=== PATIENT | male | born 1940 | race Caucasian/White ===

== ENCOUNTER → 2017-10-27 | Day surgery (SDC) | payer OTHER ==
[~2017-10-27] VITALS: Ht 172.7 cm; Wt 118.8 kg
[~2017-10-27] MED LIST: ASPIRIN81 M4 PO; CELEBREX200 M1 PO; FENOFIBRATE145 M1 PO; FISH OIL 1,0001 EAC1 PO; KEFLEX500 M1 PO; LASIX20 M1 PO; LIDOCAINE1 EACH TOP; LOSARTAN POTASS25 M1 PO; SENNA8.6 M3 PO; VITAMIN B-121000 MC3 PO; VITAMIN D1000 UNIT PO
--- NOTE | 2017-10-27 09:08 | Operative Report ---
Operative/Inv Procedure Report Surgery Date: 10/27/17 Name of Procedure: Endoscopic sinus surgery with 1. total ethmoidectomy, left 2. Middle meatal antrostomy with polypoid tissue removal, balloon sinus plasty, left 3. Middle meatal antrotomy, right 4. Frontal sinusotomy with Nasofrontal duct exploration with Balloon dilation, left 4. Inferior turbinate outfracture, bilateral 5. Middle turbinate reduction, bilateral Pre-Operative Diagnosis: Chronic sinusitis maxillary, ethmoid, frontal Post-Operative Diagnosis: Same Estimated Blood Loss: less than 50ml Surgeon/Getter Welder: Belinda Alvarado MD Anesthesia: general endotracheal tube Specimens: Sinuses, turbinates left and right Microbiology: Maxillary sinus, left Complications: Non- Condition: Stable on leaving the OR Operative Indication: Chronic sinusitis x several months Patient treated with multiple antibiotics, antihistamines, decongestants, steroid and antihistamine nasal sprays with limited improvement, with improvement but then recurrence Frequent facial pressures and headaches mostly on the left Operative/Procedure Note Note: The patient was brought to the operating room. Placed on the operating room table in supine position. At first timeout was performed identifying the patient, ID numbers and procedure to be performed. Next general oral endotracheal anesthesia was induced. Endotracheal tube was secured with tape over the [left] corner of the lip. Operating room table was rotated 90 to the left and patient was positioned for sinus surgery with head slightly hyperextended and rotated to the right. At first vasoconstriction was carried by application of Afrin spray on cottonoid pledgets. Next nasal septum was injected with 1% lidocaine with 1: 100,000 epinephrine approximately 9 mL was injected on the last and another 6 mL on the right. This followed by placement of cotton pledgets saturated with cocaine solution and Afrin spray. Patient's face was then prepped and draped in routine manner and surgery was performed. Next endoscopic sinus surgery was carried out, first on the left and then on the right. The surgery was carried with direct visualization with 0 and 30 scopes. At first on the left, middle turbinate was reduced along its inferior border with Deliouenwald forceps. Middle meatus was entered and partial ethmoidectomy was carried. The ethmoid air cells contained radial polypoid mucosa which was removed with the straight and up turned to Nadine-Mirian forceps. Ethmoid air cells were obstructed with polypoid mucosa. There was significant bony hyperostosis. Once ethmoidectomy was completed. . Acclarentl system was used. The wire guide was threaded into the frontal sinus. Position was confirmed by transillumination of the frontal sinus. Balloon was threaded and in and inflated to pressure 6. Pressure was released, balloon was withdrawn. There was no evidence of purulent drainage within the frontal sinus. Next, maxillary sinus surgery was carried. Maxillary sinus ostium was explored. Uncinate process was partially removed with Setliff forceps. Curved ball seeker was used to probe for the natural maxillary sinus ostium. The ostium was then dilated with Acclerent balloon sinus plasty. Sinus was copiously irrigated and contained purulent drainage was also sent for cultures. Polypoid tissue was removed. Surgery was completed on the last. Next surgery was carried on the right. Ethmoid sinuses were explored and there was no evidence of significant sinus disease.. Ethmoidectomy was not performed. Middle meatal antrotomy was carried. Polypoid tissue was removed. The mucosa was hyperplastic and bone hyperostotic. Partial uncinectomy was carried with Setliff forceps. Curved ball seeker was used to search for the maxillary ostium. Ostium was dilated with a curved suction. Middle turbinate was reduced along its inferior border with Gruenwald forceps. Sinus surgery was completed. Next inferior turbinates were then in and outfractured. Surgery was completed. Nasal packing was applied next. Gelfilm rolled up into a roll was placed into the middle meatus 2 pieces on each side, secured with 2-0 silk which was then taped to the cheeks with Steri-Strips. Nasal fossa was packed with Telfa saturated with Bactroban ointment. Telfa was stitched anteriorly with 2-0 silk to prevent posterior displacement. Surgery was completed. The patient was reawakened, extubated and taken to the recovery room in good condition. There were no complications. Estimated blood was was 30 mL. Findings: 1. Ethmoid sinuses, left- polypoid tissue 2. Ethmoid sinuses, right clear 3. Maxillary sinuse, left- polypoid tissue, purulent drainage 4. Maxillary sinus, right polypoid tissue, no purulent drainage 5. Middle turbinates- hypertrophy with obstruction of the middle meatus bilateral 6. Inferior Turbinates- hypertrophy with obstruction of the inferior meatus 7. Frontal sinus, left nasofrontal duct obstructed by polypoid tissue Discharge Disposition: PACU 4. Middle turbinates- paradoxical curve with obstruction of the middle meatus bilateral 5. Inferior Turbinates- hypertrophy with obstruction of the inferior meatus Discharge Disposition: Same Day Admissions
== END ==
LOC: STS 01:55
DX: J32.0 Chronic maxillary sinusitis (principal); J32.1 Chronic frontal sinusitis; J32.2 Chronic ethmoidal sinusitis; G50.1 Atypical facial pain; Z87.891 Personal history of nicotine dependence; J45.909 Unspecified asthma, uncomplicated; G47.33 Obstructive sleep apnea (adult) (pediatric); I10 Essential (primary) hypertension
CPT/HCPCS: 87070; 87075; 87184; 87071; 87147; J0131; J0690; J1100; J2250; J3490

== ENCOUNTER 2017-11-13 18:47 | Observation (INO) | payer OTHER ==
--- NOTE | 2017-11-13 19:14 | ED GENERAL ADULT ---
History of Present Illness General Chief Complaint: Lower Extremity Injury Stated Complaint: BACK PAIN Source: patient, family, old records Exam Limitations: no limitations Vital Signs & Intake/Output Vital Signs & Intake/Output Vital Signs Date Time Temp Pulse Resp B/P B/P Pulse O2 O2 Flow FiO2 Mean Ox Delivery Rate 11/14 1046 97.5 66 18 138/70 97 Room Air 11/14 0845 98.6 64 18 142/66 96 Room Air 11/14 0634 99.0 67 20 145/68 95 Room Air 11/14 0013 Room Air 11/14 0004 99.2 90 16 136/82 95 11/13 2138 99.9 88 18 166/79 96 Room Air 11/13 1915 100.4 99 20 145/85 94 Room Air ED Intake and Output 11/14 0000 11/13 1200 Intake Total 2000 Output Total Balance 2000 Intake, IV 2000 Allergies Coded Allergies: celery (Severe, GI UPSET 11/15/15) celecoxib (GI UPSET 10/25/17) lisinopril (cough 10/25/17) Reconcile Medications Aspirin (Aspirin*) 81 MG TAB.CHEW 1 TAB PO DAILY HEART HEALTH (Reported) Celecoxib (Celebrex) 200 MG CAPSULE 1 CAP PO BID PRN PAIN (Reported) Cholecalciferol (Vitamin D3) (Vitamin D) 1,000 UNIT TABLET 1 TAB PO DAILY SUPPLEMENT (Reported) Furosemide (Lasix) 20 MG TABLET 1 TAB PO EOD EDEMA (Reported) Lidocaine 5 % ADH..PATCH 1-3 PAT TOP PRN PAIN (Reported) Losartan Potassium 25 MG TABLET 1 TAB PO DAILY HEART (Reported) [place]-3 Fatty Acids/Fish Oil (Fish Oil 1,000 MG Softgel) 1 EACH CAPSULE 1 CAP PO BID SUPPLEMENT (Reported) Sennosides (Senna) 8.6 MG TABLET 1 TAB PO DAILY CONSTIPATION (Reported) Triage Note: PER FAMILY CO BACK PAIN WITH HX OF SAME THIS AM UNABLE TO AMBULATE, PER FAMILY NVD LAST FEW DAYS NONE TODAY, RECENT SINUS SURGERY AT [facility], ? DEHYDRATED Triage Nurses Notes Reviewed? yes HPI: Patient has known pinched nerve in his back. Patient was due to start physical therapy today. On Monday patient started to have diarrhea as well as nausea vomiting. Patient states he was not nauseous until he ate or drank anything but as soon as he did became nauseous and vomited. Patient has been anorexic since then. Patient has not vomited at all today but all he had was a piece of toast this morning for breakfast. Patient was too weak to get up to go to physical therapy today. When his got home from work he was on the same position that he was in when she left. She brought him in for evaluation. The pain in his back is radiating down his leg. The pain is burning and aching in nature. There is no numbness or tingling. There is no incontinence of bowel or bladder. The pain is 10 out of 10. Patient has been taking pain medication at home but he states that it does not help his pain and it makes him nauseous. (Steve VASQUES,Clem Cole) Past History Travel History Traveled to [place] past 21 day No Medical History Any Pertinent Medical History? 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 No (Steve VASQUES,Clem Cole) Review of Systems Review of Systems Constitutional: Reports: no symptoms. EENTM: Reports: no symptoms. Respiratory: Reports: no symptoms. Cardiovascular: Reports: no symptoms. GI: Reports: see HPI, diarrhea, nausea, vomiting. Genitourinary: Reports: no symptoms. Musculoskeletal: Reports: see HPI, back pain. Skin: Reports: no symptoms. Neurological/Psychological: Reports: see HPI, headache. Hematologic/Endocrine: Reports: no symptoms. Immunologic/Allergic: Reports: no symptoms. All Other Systems: Reviewed and Negative (Steve VASQUES,Clem Cole) Physical Exam Physical Exam General Appearance: well developed/nourished, alert, awake, anxious, moderate distress Head: atraumatic, normal appearance Eyes: Bilateral: PERRL, EOMI. Ears, Nose, Throat: normal pharynx, DRY MUCOSA Neck: normal inspection, supple, full range of motion Respiratory: normal breath sounds, chest non-tender, no respiratory distress, lungs clear Cardiovascular: regular rate/rhythm, normal peripheral pulses Gastrointestinal: normal bowel sounds, soft, no organomegaly, tenderness (RUQ), NO WINSTON'S, NO REBOUND,NO GUARDING Back: decreased range of motion, muscle spasm, no vertebral tenderness Extremities: normal inspection, normal capillary refill, pedal edema (TRACE) Neurologic/Psych: no motor/sensory deficits, awake, alert, oriented x 3, normal mood/affect Skin: intact, normal color, warm/dry Lymphatic: no anterior cervical brett Core Measures ACS in differential dx? No CVA/TIA Diagnosis: No Sepsis Present: No Sepsis Focused Exam Completed? No (Steve VASQUES,Clem Cole) Progress Differential Diagnoses I considered the following diagnoses in my evaluation of the patient: [ Dehydration, electrolyte abnormality, AMI, viral illness, cholecystitis, frontal abscess] Plan of Care: Orders Procedure Date/time Status Regular Diet 11/14 B Active Discharge Patient 11/14 1343 Active C.DIFFICILE 11/[address] in observation 11/13 232 Active ED Holding Orders 11/13 232 Active Patient Data 11/13 232 Active Vital Signs 11/14 2323 Active Code Status 11/13 232 Active PT Evaluate & Treat 11/13 2157 Active CASE MANAGEMENT CONSULT 11/13 2157 Active Intake & Output 11/13 193 Active URINALYSIS 11/14 1911 Active TROPONIN LEVEL 11/14 1911 Complete MAGNESIUM 11/14 1911 Complete COMPREHENSIVE METABOLIC PANEL 11/14 1911 Complete CBC WITHOUT DIFFERENTIAL 11/14 1911 Complete EKG 11/14 1911 Active Current Medications Sig/Ryley Start time Last Medication Dose Stop Time Status Admin Ciprofloxacin 500 MG ONCE ONE 11/14 1400 AC (Cipro) 11/14 1401 Loperamide HCl 4 MG ONCE ONE 11/14 1400 UNVr (Imodium) 11/14 1401 Aspirin 81 MG DAILY 11/14 899 AC 11/14 (Aspirin) 09 Cholecalciferol 1,000 IU DAILY 11/14 899 AC 11/14 (Vitamin D) 09 Furosemide 20 MG Q48 11/14 899 AC 11/14 (Lasix) 0936 Losartan Potassium 25 MG DAILY 11/14 899 AC 11/14 (Cozaar) 0936 Celecoxib 200 MG BID PRN 11/14 0045 AC (Celebrex 200MG Cap) Laboratory Tests 11/13/170: Anion Gap 12, Estimated GFR > 60, BUN/Creatinine Ratio 17.3, Glucose 108 H, Calcium 9.1, Magnesium 1.5 L, Total Bilirubin 0.9, AST 63 H, ALT 75 H, Alkaline Phosphatase 68, Troponin I < 0.01, Total Protein 7.3, Albumin 3.9, Globulin 3.4, Albumin/Globulin Ratio 1.1, CBC w Diff NO MAN DIFF REQ, RBC 5.74, MCV 83.5, MCH 28.0, MCHC 33.6, RDW 14.9 H, MPV 7.8, Gran % 85.4 H, Lymphocytes % 4.1 L, Monocytes % 10.5 H, Eosinophils % 0, Basophils % 0, Absolute Granulocytes 7.9 H, Absolute Lymphocytes 0.4 L, Absolute Monocytes 1.0 H, Absolute Eosinophils 0, Absolute Basophils 0 Microbiology 07 0650 STOOL: Clostridium difficile Toxin A & B - COMP Diagnostic Imaging: Viewed by Me: CT Scan. Discussed w/RAD: CT Scan. Radiology Impression: PATIENT: JOSÉ MIGUEL ALSTON PRESENT AGE: 77 PATIENT ACCOUNT NO: [id number] : 40 LOCATION: [facility] ORDERING PHYSICIAN: Clem Wilson MD SERVICE DATE: 11/13/17 EXAM TYPE: CAT - CT HEAD WO IV CONTRAST EXAMINATION: CT HEAD WITHOUT CONTRAST CLINICAL INFORMATION: Headaches since sinus surgery. Question frontal abscess COMPARISON: 09/08/2017 TECHNIQUE: Contiguous axial imaging was performed from the skull base to vertex without intravenous administration of contrast. DLP: 630.0 mGy-cm FINDINGS: There is no evidence of acute intracranial hemorrhage or territorial infarction. No abnormal mass effect or midline shift is seen. Johnston to white matter differentiation is well preserved. No extra-axial fluid collections are identified. 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 The ventricles are otherwise normal in size. Foci of hypoattenuation in the subcortical and periventricular white matter are most commonly attributable to chronic microangiopathic changes. Calcific atherosclerosis is present within the cavernous and supraclinoid segments of the internal carotid arteries. The osseous structures and soft tissues are normal. As on the prior study, there is complete opacification of the left maxillary sinus as well as opacification of the majority of the left ethmoid air cells and the left frontoethmoidal recess. 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 Specifically, no abscesses or acute osseous erosion are identified. The paranasal sinuses are clear. Mastoid cells are clear. IMPRESSION: 1. Complete opacification of the left mastoid sinus and opacification of the anterior ethmoid sinuses and frontoethmoidal recess, not significantly unchanged from prior. No abscess is identified. 2. No acute intracranial findings. 3. 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 Recommend follow- up nonemergent brain MRI including FIESTA sequences to exclude an arachnoid cyst. DICTATED BY: Jimmie Hanley MD DATE/TIME DICTATED:11/13/172129 POLISHER BRASS:DARRICK DATE/TIME TRANSCRIBED:11/13/172129 CONFIDENTIAL, DO NOT COPY WITHOUT APPROPRIATE AUTHORIZATION. <Electronically signed in Other Vendor System> SIGNED BY: Jimmie Hanley MD 11/13/172145, PATIENT: JOSÉ MIGUEL ALSTON PRESENT AGE: 77 PATIENT ACCOUNT NO: [id number] : 40 LOCATION: [facility] ORDERING PHYSICIAN: Clem Wilson MD SERVICE DATE: 11/13/17 EXAM TYPE: CAT - CT ABD & PELVIS W IV CONTRAST EXAMINATION: CT ABDOMEN AND PELVIS WITH CONTRAST CLINICAL INFORMATION: Right upper quadrant pain COMPARISON: 08/24/2017 CT scan of the chest and 12/01/[address] scan. TECHNIQUE: Multidetector volumetric imaging was performed from the superior aspect of the liver through the pubic symphysis following administration of 95 ml of Optiray 320 Sagittal and coronal reformatted images were obtained on the technologist workstation. DLP: 1353 mGy-cm FINDINGS: LUNG BASES: Linear scarring or atelectasis again seen at both lung bases similar to the most recent 08/24/2017 study. LIVER, GALLBLADDER, AND BILIARY TREE: Mild diffuse fatty infiltration of the liver but no focal hepatic lesion nor biliary ductal dilatation. The gallbladder is unremarkable with no evidence of radiopaque gallstones, gallbladder wall thickening, or obvious pericholecystic inflammatory changes. PANCREAS: Unremarkable. SPLEEN: Unremarkable. ADRENAL GLANDS: Unremarkable. KIDNEYS AND URETERS: The kidneys are normal in size, shape , and attenuation. No hydronephrosis, hydroureter, or calculi seen. No perinephric stranding. BLADDER: Unremarkable. GASTROINTESTINAL TRACT: Scattered colonic diverticulosis more so in the sigmoid colon. No evidence for obstruction. Normal-appearing appendix in the right lower quadrant. Visualized small bowel is unremarkable. Small hiatal hernia suggested. ABDOMINAL WALL: No significant hernia is appreciated. LYMPHOVASCULAR STRUCTURES: Vascular calcification within the aorta iliac system. No bulky adenopathy PELVIC VISCERA: Prostatic calcification OSSEOUS STRUCTURES: Degenerative changes in the spine. Right hip prosthesis IMPRESSION: I do not appreciate any acute intra-abdominal process. There is diffuse fatty infiltration of the liver. Gallbladder is unremarkable with no pericholecystic inflammatory changes. Bibasilar airspace disease is similar in appearance to the 08/24/2017 CT scan as well as the older 12/01/[address] scan. DICTATED BY: Goyo Neal MD DATE/TIME DICTATED: 11/13/172127 POLISHER BRASS:DARRICK DATE/TIME TRANSCRIBED:11/13/172127 CONFIDENTIAL, DO NOT COPY WITHOUT APPROPRIATE AUTHORIZATION. <Electronically signed in Other Vendor System> SIGNED BY: Goyo Neal MD 11/13/172135 Initial ED EKG: SR, FIRST DEGREE HB, IVCD, NO CHANGE FROM PRIOR Prior EKG: unchanged Hand-Off Endorsed To: Say Kitchen MD Endorsed Time: 0700 Pending: consult (PT, CASE MANAGEMENT) Comments: Patient still has back pain to the point that he cannot get up to ambulate. At this point patient is unsafe to be discharged. Patient will remain in the emergency department tonight for a physical therapy consultation in the morning. (Clem Wilson MD) Comments: Feels better, up and ambulating (Say Kitchen MD) Departure Departure Condition: Stable Clinical Impression Primary Impression: Back pain Referrals: Yovany Olson MD (PCP/Family) Departure Forms: Customer Survey General Discharge Information (Clem Wilson MD) Departure Time of Disposition: 1343 Disposition: HOME OR SELF CARE Prescriptions: Current Visit Scripts Ciprofloxacin HCl (Cipro) 1 TAB PO BID #14 TAB Loperamide HCl (Imodium A-D) 0 PO SEE ADMIN CRITERIA PRN diarrhea #24 TAB 1 tab after each loose stool up to 7 per day (Say Kitchen MD) Critical Care Note Critical Care Note Critical Care Time: non-applicable (Steve VASQUES,Clem Cole) ED Attending Observation Initial Observation Note: I have seen and personally examined JOSÉ MIGUEL ALSTON on 11/13/17 at 2325. I agree with the current emergency department documentation. The disposition (admission or discharge) is uncertain at this time, he needs a period of observation for the following reason(s): [Patient was unable to get to physical therapy today secondary to severe back pain as well as weakness. Patient will remain in the emergency department tonight for IV hydration given his recent bout of diarrhea as well as pain control. Patient will have physical therapy consultation in the morning. If his pain can be controlled and physical therapy and deemed that he is safe to go home at that point he will be able to be discharged however if one of those 2 things are not happen then he might need admission for IV pain control or short-term rehabilitation for physical therapy. ] The ED Nurse caring for this patient has been personally informed as to what the patient is being observed for. (Steve VASQUES,Clem Cole) Observation Discharge: I have reevaluated JOSÉ MIGUEL ALSTON on 11/14/17 at 1343. The patient is: (x): Stable for discharge (): To be admitted to Nursing Floor (): To be placed in Observation on Nursing Floor (): For transfer to other facility The patient was being observed for back pain, diarrhea As a result of that observation, I have determined safe for discharge. (Say Kitchen MD)
[2017-11-13 19:40] LABS: ABSOLUTE BASOPHIL COUNT 0 /CUMM (0.0-0.2); ABSOLUTE EOSINOPHIL COUNT 0 /CUMM (0.0-0.7); ABSOLUTE GRANULOCYTE CT 7.9 /CUMM (1.4-6.5); ABSOLUTE LYMPH COUNT 0.4 /CUMM (1.2-3.4); BASOPHIL % 0 % (0.0-2.0); EOSINOPHIL % 0 % (0-5); GRANULOCYTE % 85.4 % (42.2-75.2); HEMATOCRIT 47.9 % (42-52); MEAN CORPUSCULAR HGB CONC 33.6 G/DL (33.0-37.0); MEAN CORPUSCULAR VOLUME 83.5 FL (80.0-94.0); MEAN PLATELET VOLUME 7.8 FL (7.4-10.4); RBC DISTRIBUTION WIDTH 14.9 % (11.5-14.5); RED BLOOD CELL CT 5.74 /CUMM (4.70-6.10); WHITE BLOOD CELL COUNT 9.2 /CUMM (4.8-10.8)
[2017-11-13 19:53] LABS: PLATELET COUNT 127 /CUMM (130-400)
--- NOTE | 2017-11-13 21:36 | CT SCAN REPORT ---
EXAMINATION: CT ABDOMEN AND PELVIS WITH CONTRAST CLINICAL INFORMATION: Right upper quadrant pain COMPARISON: 08/24/2017 CT scan of the chest and 12/01/[address] scan. TECHNIQUE: Multidetector volumetric imaging was performed from the superior aspect of the liver through the pubic symphysis following administration of 95 ml of Optiray 320 Sagittal and coronal reformatted images were obtained on the technologist workstation. DLP: 1353 mGy-cm FINDINGS: LUNG BASES: Linear scarring or atelectasis again seen at both lung bases similar to the most recent 08/24/2017 study. LIVER, GALLBLADDER, AND BILIARY TREE: Mild diffuse fatty infiltration of the liver but no focal hepatic lesion nor biliary ductal dilatation. The gallbladder is unremarkable with no evidence of radiopaque gallstones, gallbladder wall thickening, or obvious pericholecystic inflammatory changes. PANCREAS: Unremarkable. SPLEEN: Unremarkable. ADRENAL GLANDS: Unremarkable. KIDNEYS AND URETERS: The kidneys are normal in size, shape, and attenuation. No hydronephrosis, hydroureter, or calculi seen. No perinephric stranding. BLADDER: Unremarkable. GASTROINTESTINAL TRACT: Scattered colonic diverticulosis more so in the sigmoid colon. No evidence for obstruction. Normal-appearing appendix in the right lower quadrant. Visualized small bowel is unremarkable. Small hiatal hernia suggested. ABDOMINAL WALL: No significant hernia is appreciated. LYMPHOVASCULAR STRUCTURES: Vascular calcification within the aorta iliac system. No bulky adenopathy PELVIC VISCERA: Prostatic calcification OSSEOUS STRUCTURES: Degenerative changes in the spine. Right hip prosthesis IMPRESSION: I do not appreciate any acute intra-abdominal process. There is diffuse fatty infiltration of the liver. Gallbladder is unremarkable with no pericholecystic inflammatory changes. Bibasilar airspace disease is similar in appearance to the 08/24/2017 CT scan as well as the older 12/01/[address] scan.
--- NOTE | 2017-11-13 21:46 | CT SCAN REPORT ---
EXAMINATION: CT HEAD WITHOUT CONTRAST CLINICAL INFORMATION: Headaches since sinus surgery. Question frontal abscess COMPARISON: 09/08/2017 TECHNIQUE: Contiguous axial imaging was performed from the skull base to vertex without intravenous administration of contrast. DLP: 630.0 mGy-cm FINDINGS: There is no evidence of acute intracranial hemorrhage or territorial infarction. No abnormal mass effect or midline shift is seen. Johnston to white matter differentiation is well preserved. No extra-axial fluid collections are identified. 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 The ventricles are otherwise normal in size. Foci of hypoattenuation in the subcortical and periventricular white matter are most commonly attributable to chronic microangiopathic changes. Calcific atherosclerosis is present within the cavernous and supraclinoid segments of the internal carotid arteries. The osseous structures and soft tissues are normal. As on the prior study, there is complete opacification of the left maxillary sinus as well as opacification of the majority of the left ethmoid air cells and the left frontoethmoidal recess. 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 Specifically, no abscesses or acute osseous erosion are identified. The paranasal sinuses are clear. Mastoid cells are clear. IMPRESSION: 1. Complete opacification of the left mastoid sinus and opacification of the anterior ethmoid sinuses and frontoethmoidal recess, not significantly unchanged from prior. No abscess is identified. 2. No acute intracranial findings. 3. 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 Recommend follow-up nonemergent brain MRI including FIESTA sequences to exclude an arachnoid cyst.
[2017-11-14] MEDS ORDERED: CIPRO250 M1 PO (13:49)
[2017-11-14] MEDS ORDERED: IMODIUM A-D2 M1 PO (13:49)
[2017-11-14 14:26] VITALS: BP 137/68
== END 2017-11-14 14:59 ==
LOC: ERH 18:47 → ERHI 23:24
PROVIDERS: Emergency Medicine
DX: M54.9 Dorsalgia, unspecified (principal); Z79.82 Long term (current) use of aspirin; I11.0 Hypertensive heart disease with heart failure; I50.9 Heart failure, unspecified; R11.2 Nausea with vomiting, unspecified; R19.7 Diarrhea, unspecified
CPT/HCPCS: 6090; 74177; 93005; 93010; 96361; 96374; 96375; 96376; 97116-GP; 97161-GP; 97530-GP; G0378; G8978-GP; G8979-GP; G8980-GP; J2405; J3490

== ENCOUNTER → 2017-12-22 | Day surgery (SDC) | payer OTHER ==
[~2017-12-22] VITALS: Ht 172.7 cm; Wt 117.9 kg
[~2017-12-22] MED LIST changes: +CIPRO250 M1 PO; +IMODIUM A-D2 M1 PO
--- NOTE | 2017-12-22 12:31 | Operative Report ---
Operative/Inv Procedure Report Surgery Date: 12/22/17 Name of Procedure: Endoscopic sinus surgery, left side only with 1. Partial ethmoidectomy 2. Middle meatal antrostomy with polypoid tissue removal 3. Maxillary sinus irrigation 4. Insertion irrigating catheter Pre-Operative Diagnosis: Chronic maxillary ethmoid sinusitis, left Post-Operative Diagnosis: Same Estimated Blood Loss: less than 50ml Surgeon/Field Cane Scaler: Belinda Alvarado MD Anesthesia: general endotracheal tube Drains: Pediatric Rosales catheter 6 [place] 1.5 mL Specimens: Sinuses, ethmoid and maxillary left Microbiology: Maxillary sinus, left Complications: Non- Condition: Stable on leaving the OR Operative Indication: Persistent sinusitis with purulent drainage from left maxillary sinus Operative/Procedure Note Note: The patient was brought to the operating room. Placed on the operating room table in supine position. At first timeout was performed identifying the patient, ID numbers and procedure to be performed. Next general oral endotracheal anesthesia was induced. Endotracheal tube was secured with tape over the last corner of the lip. Operating room table was rotated 90 to the left and patient was positioned for septal surgery with head slightly hyperextended and rotated to the right. At first vasoconstriction was carried by application of Afrin spray on cottonoid pledgets on the left side only. Next left middle turbinate and middle meatus were injected with 1% lidocaine with 1: 100,000 epinephrine approximately 15 mL. This followed by placement of cotton pledgets saturated with cocaine solution and Afrin spray. Patient's face was then prepped and draped in routine manner and surgery was performed. After adequate waiting time endoscopic sinus surgery was curetted on the left alone. The surgery was carried with direct visualization with 0 and 30 scopes. At first on the left, middle turbinate was reduced along its inferior border with Gruenwald forceps. There were synechiae between the middle turbinate and middle meatus. Those were removed with biting forceps. Middle meatus was entered and partial ethmoidectomy was carried. The ethmoid air cells were removed with the straight and up turned to Nadine-Mirian forceps. Ethmoid air cells were obstructed with hyperplastic mucosa. There was significant bony hyperostosis. There was purulent drainage within the ethmoid sinuses. Once ethmoidectomy was completed. Maxillary sinus ostium was explored. Uncinate process was partially removed with Setliff forceps. Curved ball seeker was used to probe for the natural maxillary sinus ostium. The ostium was then dilated with curved suction. Purulent drainage was obtained from the sinus which was then suctioned with a suction trap and sent for cultures. Maxillary sinus was then copiously irrigated with 500 mL of saline. This followed by 250 mL of saline with 500 mg of Ceftin and one drop of Dial soap. Next pediatric Rosales catheter 6 [place] 1.5 mL balloon was inserted through the maxillary sinus ostium. Balloon was inflated. Catheter was secured in place with the Steri-Strips. 2 Gelfilm was rolled up into a roll were placed into the middle meatus on the left. The Gelfilm's were secured with 2-0 silk which was then taped to the cheeks with Steri-Strips. Nasal fossa was packed with Telfa saturated with bacitracin were dexamethasone ophthalmic ointment. Telfa was stitched anteriorly with 2-0 silk to prevent posterior displacement. Surgery was completed. The patient was reawakened, extubated and taken to the recovery room in good condition. There were no complications. Estimated blood was 20 mL. Findings: Purulent drainage within left maxillary sinus and ethmoid sinuses Marked synechiae between the middle turbinate and middle meatus Markedly inflamed ethmoid and maxillary sinus mucosa Discharge Disposition: PACU
== END ==
LOC: STS 02:57
DX: J32.0 Chronic maxillary sinusitis (principal); J32.2 Chronic ethmoidal sinusitis; Z87.891 Personal history of nicotine dependence; I10 Essential (primary) hypertension; M15.9 Polyosteoarthritis, unspecified; M51.9 Unspecified thoracic, thoracolumbar and lumbosacral intervertebral disc disorder; E66.01 Morbid (severe) obesity due to excess calories
CPT/HCPCS: 87070; 87075; 88305; J0131; J0690; J3490